=== PATIENT | male | born 1965 | race Caucasian/White ===

== ENCOUNTER 2021-07-14 15:27 | Emergency (ER) | payer OTHER ==
[2021-07-14] MEDS: Proparacaine 0.5% Ophth Soln 15 ML Bottle EYELF ONE (15:58)
[2021-07-14] MEDS: Fluorescein 1 MG Ophth Strip EYELF ONE (15:59)
== END 2021-07-14 16:21 | disposition home or self-care (01) ==
LOC: VM.ED 15:27
DX: H10.212 Acute toxic conjunctivitis, left eye (principal); T50.3X5A Adverse effect of electrolytic, caloric and water-balance agents, initial encounter; E78.00 Pure hypercholesterolemia, unspecified; I10 Essential (primary) hypertension; E11.9 Type 2 diabetes mellitus without complications; Z95.5 Presence of coronary angioplasty implant and graft; Z79.82 Long term (current) use of aspirin; Z72.0 Tobacco use; Z79.899 Other long term (current) drug therapy
CPT/HCPCS: 99283

== ENCOUNTER 2023-03-31 06:36 | Day surgery (SDC) | payer MEDICAID, OTHER ==
[2023-03-31] MEDS ORDERED: Lactated Ringers 1,000 ML IV SCH (07:00)
[2023-03-31] MEDS ORDERED: Propofol 200 MG/20 ML SDV ONE (08:00)
[2023-03-31] MEDS ORDERED: fentaNYL 100 MCG/2 ML SDV ONE (08:00)
[2023-03-31] MEDS ORDERED: Simethicone Drops 40 MG/0.6 ML 30 ML Bottle ONE (11:08)
== END 2023-03-31 09:52 | disposition home or self-care (01) ==
LOC: VM.SDS 06:36
PROVIDERS: ATTEND Student in an Organized Health Care Education/Training Program
DX: D12.4 Benign neoplasm of descending colon (principal); K63.5 Polyp of colon; R19.5 Other fecal abnormalities; F41.9 Anxiety disorder, unspecified; I10 Essential (primary) hypertension; E11.9 Type 2 diabetes mellitus without complications; F32.A Depression, unspecified; E78.5 Hyperlipidemia, unspecified; F17.210 Nicotine dependence, cigarettes, uncomplicated; Z79.899 Other long term (current) drug therapy; Z98.890 Other specified postprocedural states
CPT/HCPCS: 00811; 45385; 82947; A9270; J2704; J3010; J7120